=== PATIENT | male | born 1960 | race Caucasian/White ===

== ENCOUNTER 2017-11-05 21:53 | Observation (INO) ==
[2017-11-06] MEDS ORDERED: Naloxone 0.4 MG/ML INJ IVP PRN (00:30)
--- NOTE | 2017-11-06 00:30 | Internal Med History&Physical ---
<Kena Singh - Last Filed: 11/06/17 00:27> Date of Encounter: 11/06/17 Time of Encounter: 00:27 Assessment and Plan (1) Bradycardia Current visit: Yes Status: Acute Symptomatic Bradycardia heart rate 55. Transferred from [place] ED per Dr. Rosa of cardiology's request after he was consulted. lightheaded, dizzy, nausea unknown etiology. 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 abd/pelvis demonstrating no acute intra- abdominal process, staghorn type calculus in left kidney and other non- obstructing calculi in both kidneys. No ureteral calculi, no hydronephrosis of either kidney. 2 mm nodule incompletely visualized the right middle lobe. Patient denies fever, chills, shortness of breath, cough, abdominal pain, dysuria, hematuria afebrile, No obvious source of infection. Will hold off on antibiotics unless WBC worsens or becomes febrile. WBC pending Qualifiers: Qualified Code(s): D72.829 - Elevated white blood cell count, unspecified (3) CAD (coronary artery disease) Current visit: Yes Status: Acute Patient reported history of [place] with no stents placed. Taking Plavix, Lipitor, aspirin. Continue home medications Qualifiers: Qualified Code(s): I25.10 - Atherosclerotic heart disease of [place] coronary artery without angina pectoris (4) DVT prophylaxis Current visit: Yes Status: Acute EPCD Internal Medicine - H&P: HPI Chief complaint: lightheadedness Admitted From: Hospital to Hospital Transfer Plans for Post Hospital Care: Home History of present illness: Mr. Lopez is a 56 year old male hypertension, hyperlipidemia, [place] who presented to [facility] as a transfer from [place] ED for bradycardia. They recorded heart rate as low as 41. Patient reported that this morning about 9 AM he started having lightheadedness. He stated was worsened when rising to stand from a seated position. He came to the ER because the lightheadedness to not improve as the day went on and he felt like he could pass out. He stated he also had nausea. He denies chest pain, shortness of breath, syncope, diaphoresis, palpitations, cough, headache, confusion, weakness, difficulty speaking, dysuria , hematuria, abdominal pain. He denies recent travel, sick contacts, trauma. The [place] ED physician spoke with avionics systems repairer Dr. Rosa who requested the patient be transferred to [facility] for evaluation. Patient reported to the [place] ED that she had occasional left flank pain that he attributed to a kidney stone due to history of passing kidney stones. CT abd/pelvis demonstrating no acute intra-abdominal process, staghorn type calculus in left kidney and other non-obstructing calculi in both kidneys. No ureteral calculi, no hydronephrosis of either kidney. 2 mm nodule incompletely visualized the right middle lobe. Troponin negative. He is a full code. Past Med Surg Social Fam HX - Past Medical History Medical history: hyperlipidemia, hypertension, myocardial infarction Psychiatric history: no psych history - Past Surgical History Surgical History: other (Carpal tunnel) - Social History Smoking Status: Current every day smoker Smokeless Tobacco Status: No Alcohol use: occasionally Drug use: none Occupational status: employed Current living situation: Home - Family History Mother Hx Family Cancer: Yes (Brain) Internal Medicine - H&P: Meds Clopidogrel Bisulfate [Plavix] 75 mg PO DAILY 01/15/17 [History] Aspirin [Lo-Dose Aspirin EC] 81 mg PO DAILY 10/06/17 [History] Atorvastatin [Lipitor] 80 mg PO HS 10/06/17 [History] HYDROcodone/Acet 5/325 mg [[place] 5-325 mg] 2 tab PO DAILY 10/06/17 [History] Nitroglycerin [Nitrostat] 0.4 mg SL Q5MIN PRN 11/05/17 [History] 3 Allergy/AdvReac Type Severity Reaction Status Date / Time No Known Allergies Allergy Verified 11/05/17 19:10 All Systems PM: A 10-system review of systems was performed and is negative for pertinent findings except as documented above in the HPI. - Constitutional Constitutional: no chills, no fatigue, no fever(s), no falls - EENT Eyes: no change in vision - Cardiovascular Cardiovascular ROS IM: lightheadedness, no chest pain, no diaphoresis, no edema , no irregular heart rhythm, no palpitations, no syncope - Respiratory Respiratory: no cough, no dyspnea, no wheezing - Gastrointestinal Gastrointestinal: nausea, no abdominal pain, no diarrhea, no hematemesis, no hematochezia, no melena, no vomiting - Genitourinary Genitourinary ROS male: no difficulty urinating, no dysuria, no hematuria - Neurological Neurological ROS: no frequent falls - Constitutional Vitals: Temp Pulse Resp BP Pulse Ox 97.6 F 63 20 143/88 99 11/05/17 23:34 11/05/17 23:34 11/05/17 23:34 11/05/17 23:34 11/05/17 23:34 General appearance: Present: A&O X 3, pleasant, no acute distress, answers questions appropriately - Head Head exam: Present: atraumatic, normocephalic - Respiratory Respiratory exam: Present: CTAB. Absent: rales, rhonchi, wheezes - Cardiovascular Cardiovascular exam: Present: bradycardia. Absent: clicks, rubs - GI/Abdominal GI/Abdominal exam: Present: normal bowel sounds, soft. Absent: guarding, tenderness - Extremities Exam Extremities exam: Absent: tenderness - Back Exam Back exam: Absent: CVA tenderness (L), CVA tenderness (R), rash noted - Neurological Exam Neurological exam: Present: alert, oriented X3 - Psychiatric Psychiatric exam: Present: normal affect, normal mood - Skin Skin exam: Present: dry, intact <Xin,Shashank P - Last Filed: 11/06/17 03:56> Date of Encounter: 11/06/17 Internal Medicine - H&P: HPI History of present illness: Mr. Lopez is a 56 year old male All Systems PM: A 10-system review of systems was performed and is negative for pertinent findings except as documented above in the HPI. - Constitutional Vitals: Temp Pulse Resp BP Pulse Ox 97.6 F 46 18 101/52 96 11/05/17 23:34 11/06/17 02:00 11/06/17 02:00 11/06/17 02:00 11/06/17 02:00 Internal Med - H&P Results - Labs CBC & Chem 7: 11/06/17 00:48 11/06/17 00:48 Labs: Short CBC 11/06/17 Range/Units 00:48 WBC 14.6 H (4.3-11.1) K/mcL Hgb 16.2 (12.9-16.9) g/dL Hct 47.5 (37.5-50.1) % Plt Count 241 (140-400) K/mcL Neutrophils # 9.9 H (1.6-8.9) K/mcL BMP 11/06/17 00:48 Sodium 139 Potassium 3.7 Chloride 109 H Carbon Dioxide 24 BUN 16 Creatinine 0.69 L Glucose 101 Calcium 9.6 Cardiac Enzymes 11/06/17 Range/Units 00:48 Troponin I < 0.03 (< 0.04) ng/mL - Attending Attestation I examined this patient and my medical decision-making was reviewed with the Resident Physician. I agree with the documented findings, disposition and treatment plan as described except to the extent set forth below. 56/M Transferred from nearby hospital for symptomatic bradycardia. Noted that patient has a elevated white blood cell count. We will get the blood culture and empirical levofloxacin orally. Regarding bradycardia, recommended patient to lay down flat. Atropine and external pacemaker at bedside. Informed patient if he has chest pain or nausea/vomiting to inform nurse as soon as possible. Patient verbalized understanding. Cardiology consult placed.
[2017-11-06] MEDS ORDERED: *HR* Atropine Sulfate 1 MG/10 ML SYRINGE ONE (00:52)
[2017-11-06 01:25] LABS: Basophils # 0.1 K/mcL (0.0-0.2); Basophils % 0.3 %; Eosinophils # 0.2 K/mcL (0.0-0.6); Hematocrit 47.5 % (37.5-50.1); Hemoglobin 16.2 g/dL (12.9-16.9); Immature Granulocytes % 0.4 % (0-4); Immature Platelets 8.1 % (1.1-6.1); Lymphocytes # 3.6 K/mcL (0.6-4.6); Lymphocytes % 24.6 %; Mean Corpuscular HGB Conc 34.1 g/dL (31.6-35.5); Mean Corpuscular Hemoglobin 30.5 pg (28.0-33.3); Mean Corpuscular Volume 89.5 fL (83.0-100.0); Mean Platelet Volume 11.1 fL (9.4-12.4); Monocytes # 0.8 K/mcL (0.0-1.3); Monocytes % 5.7 %; Neutrophils # 9.9 K/mcL (1.6-8.9); Platelet Count 241 K/mcL (140-400); Red Blood Count 5.31 M/mcL (4.19-5.50); Red Cell Distribution Width 13.3 % (11.5-14.5)
[2017-11-06 01:45] LABS: BUN/Creatinine Ratio 23 (6-26); Blood Urea Nitrogen 16 mg/dL (6-20); Calcium 9.6 mg/dL (8.6-10.3); Carbon Dioxide 24 mEq/L (23-29); Chloride 109 mEq/L (98-107); Glucose 101 mg/dL (70-105); Osmolality,Calculated 289 (280-300); Potassium 3.7 mEq/L (3.5-5.1); Sodium 139 mEq/L (136-145); Troponin I < 0.03 ng/mL (< 0.04); eGFR For African Americans > 60 (> 60); eGFR For Non-African Americans > 60 (> 60)
[2017-11-06] MEDS: levoFLOXacin 500 MG TABLET PO SCH (07:25)
[2017-11-06] MEDS: Aspirin Enteric Coated 81 MG Tablet PO SCH (07:25)
[2017-11-06] MEDS: 0.9 % Sodium Chloride 1,000 ML IV SCH ×2 (11:17→20:24)
--- NOTE | 2017-11-06 12:21 | Cardiology Consult Note ---
Date of Encounter: 11/06/17 Time of Encounter: 10:30 Assessment and Plan (1) Orthostasis Current Visit: Yes Status: Acute Patient presents with orthostatic symptoms - describes dizziness upon standing. Also appeared to have a vagal response after showering. Symptoms may be multifactorial - in part due to a developing infection (leukocytosis noted on presentation) and/or volume depletion. Patient reports being physically active at work for 27 days straight not drinking any water - rather was drinking fluids with caffeine. Intermittent low blood pressure while here. Recommend hydration with 1L NS @ 100cc/hour. Will let patient eat. Observe for signs of infection. (2) Bradycardia Current Visit: Yes Status: Acute Patient noted to have sinus bradycardia. This is not new. Patient reports being told this in the past. Additionally, ECGs from 2014 document heart rates 56 and 49 bpm. There are no concerning ECG abnormalities and normal intervals on presenting ECGs. Telemetry does not demonstrates any concerning pauses. Bradycardia does not appear to be the underlying cause of patient's presentation. (3) CAD (coronary artery disease) Current Visit: Yes Status: Acute Known CAD having had NSTEMI in 2014. [facility] demonstrated RCA disease with vessel too small to intervene upon. Medical management was recommended. Continue antiplatelet agent, statin. Patient denies recent cardiac symptoms. No acute ECG findings. Troponins negative. Qualifiers: Coronary Disease-Associated Artery/Lesion type: [place] artery [place] vs. transplanted heart: [place] heart Associated angina: without angina Qualified Code(s): I25.10 - Atherosclerotic heart disease of [place] coronary artery without angina pectoris (4) Pulmonary nodule Current Visit: Yes Status: Acute CT AB/P done on presentation given patient concern for "passing a kidney stone" . This demonstrated bilateral nonobstructing renal calculi. Also demonstrated a right middle lobe nodule recommending further workup. Will defer to primary team for management. Discussion w patient/family: The assessment and plan as outlined above was discussed with the patient and/or family members who expressed understanding and agreement. All questions were answered. Thank you for involving us in the care of your patient. Please call with any questions. History of Present Illness Consult date: 11/06/17 Requesting physician: Shashank Lauren Consult reason: bradycardia Chief complaint: generalized weakness, dizzy upon standing History of present illness: Mr. Lopez is a 56 year old male presenting as a transfer from [facility]. He states he developed symptoms of "passing a kidney stone" about a weak ago associated with nausea. He denies vomiting, fevers, chills, diarrhea. 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 He denies any symptoms during while working. Since he's been back, also noticed dizzy feeling when arising to a standing position. Last night, after a warm shower he felt symptoms were more pronounced. He denies syncope. He admits to not drinking water. Beverages include diet coke, iced tea and coffee. Denies chest pain, palpitations. Reports known history of slow heart rates. Past Med Surg Social Fam HX - Past Medical History Attestation: Yes The following information was validated with the patient. Medical history: coronary artery disease, hyperlipidemia, hypertension, myocardial infarction Psychiatric history: no psych history - Past Surgical History Surgical History: other (Carpal tunnel) - Social History Smoking Status: Current every day smoker Packs per day: 1 Smokeless Tobacco Status: No Alcohol use: occasionally Drug use: none - Family History Mother Hx Family Cancer: Yes (Brain) Medications and Allergies Clopidogrel Bisulfate [Plavix] 75 mg PO DAILY 01/15/17 [History] Aspirin [Lo-Dose Aspirin EC] 81 mg PO DAILY 10/06/17 [History] Atorvastatin [Lipitor] 80 mg PO HS 10/06/17 [History] HYDROcodone/Acet 5/325 mg [[place] 5-325 mg] 2 tab PO DAILY 10/06/17 [History] 3 Allergy/AdvReac Type Severity Reaction Status Date / Time No Known Allergies Allergy Verified 11/05/17 19:10 All Systems Review: The remainder of the systems were reviewed and are negative - Cardiovascular Cardiovascular: as per HPI Physical Examination Vital Signs, Last 4 Hours Pulse Resp BP Pulse Ox 11/06/17 11:33 55 18 132/70 99 General: Conversant, No Apparent Distress HEENT: Other (mucus membranes dry) Cardiac: Reg Rate and Rhythm, Normal S1 and S2, No Murmur Lungs: Normal Breath Sounds, No Wheeze, Rales, Rhonchi Neuro: Alert and responsive, No focal deficits noted Abdomen: Soft, Non-Tender, Other (bowel sounds present) Extremities: No Edema, Normal Pulses Results 11/06/17 00:48 11/06/17 00:48 Lab Results 11/06/17 11/06/1711/06/18 00:48 00:48 06:52 WBC 14.6 H Hgb 16.2 Hct 47.5 Plt Count 241 Sodium 139 Potassium 3.7 Chloride 109 H Carbon Dioxide 24 BUN 16 Creatinine 0.69 L Glucose 101 Calcium 9.6 Troponin I < 0.03 < 0.03 - Imaging and Cardiology Chest Xray: report reviewed Other Results: CT AB/P reviewed - EKG Interpretation EKG results cardiology: personally reviewed (3/5 at 1:38 demonstrates sinus bradycardia HR 46 bpm with normal intervals; 3/4 demonstrates sinus rhythm with atrial ectopy; no acute findings on ECGs), other (average telemetry heart rate is 55 bpm) Consult Discharge Plan - Plan Referrals: Mata Bedoya MD [Primary Care Provider] - 11/13/17 10:30 am
--- NOTE | 2017-11-06 15:08 | Event Note ---
Date of Encounter: 11/06/17 Time of Encounter: 15:05 Mr. Lopez is a 56 year old male hypertension, hyperlipidemia, [place] who presented to [facility] as a transfer from [place] ED for bradycardia. They recorded heart rate as low as 41. Patient reported that this morning about 9 AM he started having lightheadedness. He stated was worsened when rising to stand from a seated position. He came to the ER because the lightheadedness to not improve as the day went on and he felt like he could pass out. He stated he also had nausea. He denies chest pain, shortness of breath, syncope, diaphoresis, palpitations, cough, headache, confusion, weakness, difficulty speaking, dysuria , hematuria, abdominal pain. He denies recent travel, sick contacts, trauma. The [place] ED physician spoke with explosive ordnance disposal manager Dr. Rosa who requested the patient be transferred to [facility] for evaluation. Patient reported to the [place] ED that she had occasional left flank pain that he attributed to a kidney stone due to history of passing kidney stones. CT abd/pelvis demonstrating no acute intra-abdominal process, staghorn type calculus in left kidney and other non-obstructing calculi in both kidneys. No ureteral calculi, no hydronephrosis of either kidney. 2 mm nodule incompletely visualized the right middle lobe. Troponin negative. He is a full code. 1. near syncope likley from dehydration, improved with IVF 2. bradycardia chronci cardiology consult appreciated 3. leukocystosis with negative UA, CXR and abdomen CT, likley from stress, will follow up AM lab discharge if symptom resolved, work up is negative, pending TTE
[2017-11-06 20:24] LABS: Basophils # 0.1 K/mcL (0.0-0.2); Basophils % 0.5 %; Eosinophils # 0.2 K/mcL (0.0-0.6); Hematocrit 44.8 % (37.5-50.1); Immature Granulocytes % 0.2 % (0-4); Lymphocytes # 4.9 K/mcL (0.6-4.6); Lymphocytes % 43.9 %; Mean Corpuscular HGB Conc 33.5 g/dL (31.6-35.5); Mean Corpuscular Hemoglobin 30.2 pg (28.0-33.3); Mean Corpuscular Volume 90.1 fL (83.0-100.0); Mean Platelet Volume 10.8 fL (9.4-12.4); Monocytes # 0.9 K/mcL (0.0-1.3); Monocytes % 8.2 %; Neutrophils # 5.1 K/mcL (1.6-8.9); Platelet Count 223 K/mcL (140-400); Red Blood Count 4.97 M/mcL (4.19-5.50); Red Cell Distribution Width 13.4 % (11.5-14.5); Segmented Neutrophils % 45.2 %
[2017-11-06] MEDS ORDERED: levoFLOXacin 250 MG TABLET PO ONE (20:43)
[2017-11-06] MEDS ORDERED: Levofloxacin 250 MG/50 ML 250 MG/50 ML BAG IVPB ONE (21:09)
[2017-11-07 03:47] LABS: Chloride 111 mEq/L (98-107); Potassium 4.3 mEq/L (3.5-5.1); Sodium 139 mEq/L (136-145)
[2017-11-07 03:56] LABS: Basophils % 0.4 %; Eosinophils # 0.2 K/mcL (0.0-0.6); Eosinophils % 2.3 %; Hematocrit 46.7 % (37.5-50.1); Hemoglobin 15.5 g/dL (12.9-16.9); Immature Granulocytes % 0.2 % (0-4); Lymphocytes # 3.6 K/mcL (0.6-4.6); Lymphocytes % 37.2 %; Mean Corpuscular HGB Conc 33.2 g/dL (31.6-35.5); Mean Corpuscular Volume 90.3 fL (83.0-100.0); Mean Platelet Volume 11.3 fL (9.4-12.4); Monocytes # 0.8 K/mcL (0.0-1.3); Monocytes % 8.7 %; Neutrophils # 4.9 K/mcL (1.6-8.9); Platelet Count 242 K/mcL (140-400); Red Blood Count 5.17 M/mcL (4.19-5.50); Red Cell Distribution Width 13.3 % (11.5-14.5); Segmented Neutrophils % 51.2 %
[2017-11-07 04:20] LABS: BUN/Creatinine Ratio 24 (6-26); Blood Urea Nitrogen 18 mg/dL (6-20); Calcium 9.3 mg/dL (8.6-10.3); Carbon Dioxide 23 mEq/L (23-29); Glucose 101 mg/dL (70-105); Magnesium 1.8 mg/dL (1.6-2.6); Osmolality,Calculated 290 (280-300); eGFR For African Americans > 60 (> 60); eGFR For Non-African Americans > 60 (> 60)
[2017-11-07] MEDS: levoFLOXacin 500 MG TABLET PO SCH (08:02)
[2017-11-07] MEDS: Aspirin Enteric Coated 81 MG Tablet PO SCH (08:02)
--- NOTE | 2017-11-07 08:49 | Internal Med Progress Note ---
Date of Encounter: 11/08/17 Time of Encounter: 08:46 - Assessment and plan (1) Orthostasis Status: Acute Assessment and plan: -Patient presents with orthostatic symptoms - describes dizziness upon standing -Also appeared to have a vagal response after showering -Sxs may be multifactorial - in part due to a developing infection ( leukocytosis noted on presentation) and/or volume depletion -Patient reports being physically active at work for 27 days straight not drinking any water - rather was drinking fluids with caffeine. -Intermittent low blood pressure while here Per cardiology: -Recommend hydration with 1L NS @ 100cc/hour -Let patient eat; observe for signs of infection (2) Bradycardia Status: Acute Assessment and plan: -Patient noted to have sinus bradycardia -Not a new issue; Patient reports being told this in the past -EKGs from 2014 document heart rates 56 and 49 bpm -There are no concerning ECG abnormalities and normal intervals on presenting ECGs -Telemetry does not demonstrates any concerning pauses Plan: -Continuous telemetry (3) CAD (coronary artery disease) Status: Acute Assessment and plan: -Patient has a known CAD; NSTEMI in 2013 -[facility] demonstrated RCA disease w/ vessel too small to intervene upon -No acute EKG findings; Troponin negative -Patient denies recent cardiac symptoms Plan: -ASA 81 mg PO daily -Lipitor 80 mg PO HS -Plavix 75 mg PO daily -Cardiac diet Qualifiers: Coronary Disease-Associated Artery/Lesion type: [place] artery [place] vs. transplanted heart: [place] heart Associated angina: without angina Qualified Code(s): I25.10 - Atherosclerotic heart disease of [place] coronary artery without angina pectoris (4) Pulmonary nodule Status: Acute Assessment and plan: -CT AB/P performed at time of presentation to rule out kidney stone -Demonstrated b/l non-obstructing renal calculi -Also demonstrated a RML nodule recommending further workup (5) DVT prophylaxis Status: Acute Assessment and plan: EPCD - Subjective Interval history: Patient is a 56 year old male with PMH of HTN, HLD, [place] who presented to [facility] as a transfer from [facility] for bradycardia. They recorded his HR as low as 41. Patient reported that at 9 AM on date of admission he experienced lightheadedness. Worsened when rising to stand from a seated position. Presented to the ER because the lightheadedness did not improve as the day went on. [place] like he could pass out. Also reported nausea. The [place] ED physician spoke with helper driver Dr. Rosa who requested the patient be transferred to [facility] for evaluation. Patient reported to the [place] ED that he had occasional L flank pain that he attributed to a kidney stone due to history of passing kidney stones. CT abd/pelvis demonstrating no acute intra-abdominal process, staghorn type calculus in left kidney and other non-obstructing calculi in both kidneys. No ureteral calculi, no hydronephrosis of either kidney. 2 mm nodule incompletely visualized in RML. Troponin negative. Patient was seen and examined at bedside this morning. - Constitutional Vitals: Temp Pulse Resp BP Pulse Ox 97.8 F 46 20 138/84 98 11/07/17 07:56 11/07/17 07:56 11/07/17 07:56 11/07/17 07:56 11/07/17 07:56 General appearance: Present: A&O X 3, pleasant, no acute distress, answers questions appropriately - Head Head exam: Present: atraumatic, normocephalic - Eye Eye exam: Present: PERRL, conjuntiva pink, sclera anicteric Pupils: Present: PERRL - Neck Neck exam general surgery: Present: supple, trachea midline. Absent: lymphadenopathy - Respiratory Respiratory exam: Present: CTAB. Absent: accessory muscle use, rales, rhonchi, wheezes - Cardiovascular Cardiovascular exam: Present: RRR, +S1, +S2. Absent: diastolic murmur, gallop, rubs, systolic murmur - GI/Abdominal GI/Abdominal exam: Present: normal bowel sounds, soft, no peritoneal signs. Absent: distended, tenderness - Extremities Exam Extremities exam: Present: warm, radial pulses palpable and symmetrical. Absent : calf tenderness, cyanotic, pedal edema - Neurological Exam Neurological exam: Present: CN II-XII intact, oriented X3, no focal deficits. Absent: pronater drift, facial droop, speech deficit - Skin Skin exam: Present: dry, intact Internal Medicine: Result - Labs CBC & Chem 7: 11/07/17 02:52 11/07/17 02:52 Labs: Short CBC 11/06/17 11/07/17 Range/Units 20:13 02:52 WBC 11.2 H 9.6 (4.3-11.1) K/mcL Hgb 15.0 15.5 (12.9-16.9) g/dL Hct 44.8 46.7 (37.5-50.1) % Plt Count 223 242 (140-400) K/mcL Neutrophils # 5.1 4.9 (1.6-8.9) K/mcL BMP 11/07/17 02:52 Sodium 139 Potassium 4.3 Chloride 111 H Carbon Dioxide 23 BUN 18 Creatinine 0.75 Glucose 101 Calcium 9.3 Cardiac Enzymes 11/06/17 Range/Units 12:54 Troponin I < 0.03 (< 0.04) ng/mL - Impressions Impressions Echocardiogram 11/06/17 00:56 Impressions: LVEF 65%. Normal LV chamber size, wall thickness and function. Normal left ventricular diastolic function. Normal right ventricular structure and function. No significant valvular dysfunction. No evidence of pulmonary hypertension. Left Ventricular Wall Motion: Rest Echo Findings All wall segments showed normal motion. Findings: Study Quality * Technically sub-optimal due to poor echocardiographic windows. ECG Findings * Sinus bradycardia with sinus arrhythmia and PACs. Left Ventricle * LVEF 65%. * Normal LV chamber size, wall thickness and function. * Normal left ventricular diastolic function. Right Ventricle * Normal right ventricular structure and function. Left Atrium * Mildly dilated left atrium. Right Atrium * Mildly dilated right atrium. Interatrial Septum * Interatrial septum not well evaluated. Aortic Valve * Trileaflet aortic valve with normal function. * No aortic stenosis. * No aortic regurgitation. Mitral Valve * Normal mitral valve structure and function. * No mitral regurgitation. * No mitral stenosis. Tricuspid Valve * Normal tricuspid valve structure and function. * Trace tricuspid regurgitation. * No evidence of pulmonary hypertension. Pulmonic Valve * Pulmonic valve is not well visualized. * No pulmonic regurgitation. Aorta * Normally sized aortic root. Pericardium * The pericardium appears normal. IVC * The IVC is not well evaluated. Pulmonary Artery * Pulmonary artery not well visualized. - VTE Documentation of Mechanical Device: Intermittent pneumatic compression device Consult Discharge Plan - Plan Instructions: Meclizine (By mouth), Dehydration (GEN), Bradycardia (DC) Referrals: Mata Bedoya MD [Primary Care Provider] - 11/13/17 10:30 am Prescriptions: Meclizine [Antivert] 12.5 mg PO TID PRN #30 tablet PRN Reason: Dizziness
[2017-11-07 11:40] VITALS: BP 136/72
--- NOTE | 2017-11-07 12:02 | Cardiology Progress Note ---
Date of Encounter: 11/07/17 Time of Encounter: 11:30 Assessment and Plan (1) Orthostasis Current Visit: Yes Status: Acute Patient presents with orthostatic symptoms - describes dizziness upon standing. Also appeared to have a vagal response after showering. Patient received IVF hydration yesterday and reports some improvement but still with symptoms of dizziness. Per patient, evaluation with otoscope by Hospitalist revealed concern for ear infection. Patient notably with elevated WBCs on admission - started on levaquin. Long discussion with patient and . No obvious cardiac cause to his symptoms. Recommend continued hydration as outpatient. Will follow up with Cardiology as outpatient. (2) Bradycardia Current Visit: Yes Status: Acute Sinus bradycardia is not new. Patient reports being told this in the past. Additionally, ECGs from 2014 document heart rates 56 and 49 bpm. There are no concerning ECG abnormalities and normal intervals on presenting ECGs. Telemetry does not demonstrates any concerning pauses. Bradycardia does not appear to be the underlying cause of patient's presentation. Did discuss possibility of ordering an extended telemetry recorder as an outpatient if symptoms do not resolve after treatment with ABx for ear infection. (3) CAD (coronary artery disease) Current Visit: Yes Status: Acute Known CAD having had NSTEMI in 2014. LHC demonstrated RCA disease with vessel too small to intervene upon. Medical management was recommended. Continue antiplatelet agent, statin. Patient denies recent cardiac symptoms. No acute ECG findings. Troponins negative. Qualifiers: Coronary Disease-Associated Artery/Lesion type: [place] artery [place] vs. transplanted heart: [place] heart Associated angina: without angina Qualified Code(s): I25.10 - Atherosclerotic heart disease of [place] coronary artery without angina pectoris (4) Pulmonary nodule Current Visit: Yes Status: Acute CT AB/P done on presentation given patient concern for "passing a kidney stone" . This demonstrated bilateral nonobstructing renal calculi. Also demonstrated a right middle lobe nodule recommending further workup. Will defer to primary team for management. (5) Dizziness Current Visit: Yes Status: Acute Patient's symptoms of dizziness improved but persist after IVF hydration. Per patient, otoscope exam revealed concern for ear infection. Patient receiving ABx treatment. I had a long discussion with the patient and - no identifiable cardiac cause to his symptoms. Troponin negative, Echo demonstrate normal LVEF and no other concerning findings. Telemetry reveals sinus bradycardia which is not new and there are no pauses or dysrhythmia as an explanation for his symptoms. Recommend patient complete course of antibiotic treatment. Will re-evaluate as an outpatient and if symptoms do not resolve can consider outpatient extended panel monitor. Patient and agreeable with plan. Patient interested in going home. Discussion w patient/family: The assessment and plan as outlined above was discussed with the patient and/or family members who expressed understanding and agreement. All questions were answered. Thank you for involving us in the care of your patient. Please call with any questions. Subjective Principal diagnosis: dizziness Interval history: Mr. Lopez feels some improvement after IVF hydration but continues to have episodes of dizziness with change in head position and with standing. No acute overnight events. Telemetry average HR 59 bpm without pauses. Objective Vital Signs, Last 4 Hours Temp Pulse Resp BP Pulse Ox 11/07/17 11:38 98.1 F 51 14 136/72 99 General: Conversant, No Apparent Distress HEENT: Mucus Membranes Moist Neck: Other (no carotid bruit) Cardiac: Reg Rate and Rhythm, Normal S1 and S2, No Murmur Lungs: Normal Breath Sounds, No Wheeze, Rales, Rhonchi Neuro: Alert and responsive, No focal deficits noted Abdomen: Soft, Non-Tender, Other (normal bowel sounds) Extremities: No Edema Results 11/07/17 02:52 11/07/17 02:52 Lab Results 11/06/17 11/06/17 11/07/17 12:54 20:13 02:52 WBC 11.2 H 9.6 Hgb 15.0 15.5 Hct 44.8 46.7 Plt Count 223 242 Sodium Potassium Chloride Carbon Dioxide BUN Creatinine Glucose Calcium Magnesium Troponin I < 0.03 11/07/17 02:52 WBC Hgb Hct Plt Count Sodium 139 Potassium 4.3 Chloride 111 H Carbon Dioxide 23 BUN 18 Creatinine 0.75 Glucose 101 Calcium 9.3 Magnesium 1.8 Troponin I - EKG Interpretation EKG results cardiology: other (telemetry reviewed, average HR 59 bpm no pauses or concerning dysrhythmia) - VTE Documentation of Mechanical Device: Intermittent pneumatic compression device Consult Discharge Plan - Plan Referrals: Mata Bedoya MD [Primary Care Provider] - 11/13/17 10:30 am
--- NOTE | 2017-11-07 14:19 | Discharge Summary ---
<Daniel Goldsmith - Last Filed: 11/07/17 14:23> - NOTES TO OUTPATIENT PROVIDER Notes to Outpatient Provider: Follow up with TSH results; follow up on 2 mm lung nodule found on CT scan Orders not resulted at time of discharge: Pending orders 11/06/17 04:50 Culture,Blood [BC] Routine 11/06/17 04:55 Culture,Blood,Additional [BC] Routine Date of Encounter: 11/07/17 Time of Encounter: 14:16 - Discharge Diagnosis (1) Orthostasis Priority: Primary Status: Acute (2) Bradycardia Priority: Secondary Status: Acute (3) CAD (coronary artery disease) Priority: Secondary Status: Acute Qualifiers: Coronary Disease-Associated Artery/Lesion type: [place] artery [place] vs. transplanted heart: [place] heart Associated angina: without angina Qualified Code(s): I25.10 - Atherosclerotic heart disease of [place] coronary artery without angina pectoris (4) Pulmonary nodule Priority: Secondary Status: Acute (5) DVT prophylaxis Priority: Secondary Status: Acute Hospital course: Patient is a 56 year old male with PMH of HTN, HLD, [place] who presented to [facility] as a transfer from [facility] for bradycardia. They recorded his HR as low as 41. Patient reported that at 9 AM on date of admission he experienced lightheadedness. Worsened when rising to stand from a seated position. Presented to the ER because the lightheadedness did not improve as the day went on. Allison like he could pass out. Also reported nausea. The [facility] ED physician spoke with computer lab assistant Dr. Rosa who requested the patient be transferred to [facility] for evaluation. Patient reported to the [facility] ED that he had occasional L flank pain that he attributed to a kidney stone due to history of passing kidney stones. CT abd/pelvis demonstrating no acute intra-abdominal process, [place] type calculus in left kidney and other non-obstructing calculi in both kidneys. No ureteral calculi, no hydronephrosis of either kidney. 2 mm nodule incompletely visualized in RML. Troponin negative. Continuous telemetry demonstrated no abnormalities. Patient was seen and examined at bedside this morning. States that he feels better today. States that he wants to leave. Has some dizziness which he describes as the room taking one spin every time he moves from a seated position to a standing position. Seanor-Hallpike negative. Instructed to increase fluid intake. Patient has an appointment with his PCP tomorrow. Will follow up with a TSH. Will be given a prescription for Antivert. - Time Spent with Patient Total time spent providing and/or coordinating discharge services: Greater than 30 minutes (42 minutes) - Discharge Medications Prescriptions: Meclizine [Antivert] 12.5 mg PO TID PRN #30 tablet PRN Reason: Dizziness Home Medications: Clopidogrel Bisulfate [Plavix] 75 mg PO DAILY 01/15/17 [History] Aspirin [Lo-Dose Aspirin EC] 81 mg PO DAILY 10/06/17 [History] Atorvastatin [Lipitor] 80 mg PO HS 10/06/17 [History] HYDROcodone/Acet 5/325 mg [[place] 5-325 mg] 2 tab PO DAILY 10/06/17 [History] Meclizine [Antivert] 12.5 mg PO TID PRN #30 tablet 11/07/17 [Rx] Allergies/Adverse Reactions: 3 Allergy/AdvReac Type Severity Reaction Status Date / Time No Known Allergies Allergy Verified 11/05/17 19:10 Date of admission: 11/05/17 23:32 Primary care physician: Mata Bedoya MD Consults: 11/06/17 00:56 Consult to Cardiology [CONS] Routine Comment: Consulting Provider: Cardiology [facility] Reason for Consult: bradycardia. Dr. Rosa already called by [facility] Call Completed: No Discharging clinician: Daniel Goldsmith Anticipated date of discharge: 11/07/17 - Constitutional Vitals: Temp Pulse Resp BP Pulse Ox 98.1 F 51 14 136/72 99 11/07/17 11:38 11/07/17 11:38 11/07/17 11:38 11/07/17 11:38 11/07/17 11:38 General appearance: Present: A&O X 3, pleasant, no acute distress, answers questions appropriately - Head Head exam: Present: atraumatic, normocephalic - Eye Eye exam: Present: PERRL, conjuntiva pink, sclera anicteric Pupils: Present: PERRL - Neck Neck exam general surgery: Present: supple, trachea midline. Absent: lymphadenopathy - Respiratory Respiratory exam: Present: CTAB. Absent: accessory muscle use, rales, rhonchi, wheezes - Cardiovascular Cardiovascular exam: Present: bradycardia, +S1, +S2. Absent: diastolic murmur, gallop, rubs, systolic murmur - GI/Abdominal GI/Abdominal exam: Present: normal bowel sounds, soft. Absent: distended, tenderness - Extremities Exam Extremities exam: Present: warm, radial pulses palpable and symmetrical. Absent : calf tenderness, cyanotic, pedal edema - Neurological Exam Neurological exam: Present: CN II-XII intact, oriented X3, no focal deficits. Absent: pronater drift, facial droop, speech deficit - Skin Skin exam: Present: dry, intact - Patient Status Disposition: Home, Self-Care Condition: Good Overall status at discharge: patient is progressing back to baseline - Discharge Instructions Instructions: Meclizine (By mouth), Dehydration (GEN), Bradycardia (DC) Follow Up With: Mata Bedoya MD [Primary Care Provider] - 11/13/17 10:30 am Forms: Inpatient Work/School Release - Diet and Activity Activity: increase activity as tolerated Diet: advance to your usual diet - VTE Documentation of Mechanical Device: Intermittent pneumatic compression device <Robi Chapin - Last Filed: 11/07/17 18:50> Orders not resulted at time of discharge: Pending orders 11/06/17 04:50 Culture,Blood [BC] Routine 11/06/17 04:55 Culture,Blood,Additional [BC] Routine Date of Encounter: 11/07/17 Hospital course: Mr. Lopez is a 57 year old male - Time Spent with Patient Total time spent providing and/or coordinating discharge services: Date of admission: 11/05/17 23:32 Primary care physician: Mata Bedoya MD Consults: 11/06/17 00:56 Consult to Cardiology [CONS] Routine Comment: Consulting Provider: Card[facility] [place] Reason for Consult: bradycardia. Dr. Rosa already called by [facility] Call Completed: No - Constitutional Vitals: Temp Pulse Resp BP Pulse Ox 98.1 F 51 14 136/72 99 11/07/17 11:38 11/07/17 11:38 11/07/17 11:38 11/07/17 11:38 11/07/17 11:38 - Attending Attestation This patient was discharged in stable much improved condition, overall this appears to be somewhat like an acute vestibular neuritis. His vital signs really showed no signs of orthostasis here at the main campus. His bradycardia seems to be somewhat chronic, and asymptomatic. I examined this patient and my medical decision-making was reviewed with the Resident Physician. I agree with the documented findings, disposition and treatment plan as described except to the extent set forth below.
== END 2017-11-07 14:30 | disposition home or self-care (01) ==
LOC: 2NNU → SUATTDRO 11-06 05:42
PROVIDERS: ADMIT Internal Medicine; ATTEND Hospitalist